=== PATIENT | male | born 1945 | race Caucasian/White ===

== ENCOUNTER → 2020-01-17 | Outpatient (CLI) | payer MEDICARE ==
--- NOTE | 2020-01-17 17:24 | Diagnostic Imaging Report ---
INDICATION: Left flank pain x5 days AP abdominal views are obtained. No overt obstruction is seen. There is prominent stool throughout the colon. There are surgical sutures in the right side of the abdomen. No overt calculi are visualized over the left kidney. There is a small calcification overlying the right side of the abdomen. The pelvis shows some previous surgical sutures. IMPRESSION: Unremarkable bowel gas pattern. Postop changes. Small calcification overlying the right side of the abdomen may be in the right kidney. Dictated by: Dictated on workstation # [id number]
--- NOTE | 2020-01-17 17:27 | Diagnostic Imaging Report ---
EXAMINATION: CT Abdomen Pelvis without contrast. TECHNIQUE: Multiple contiguous axial images were obtained through the abdomen and pelvis without the use of intravenous contrast. All CT scans use one or more of the following dose optimizing techniques: automated exposure control, MA and/or KvP adjustment based on a patient size and exam type, or iterative reconstruction. HISTORY: FLANK PAIN COMPARISON: None available. FINDINGS: Lung bases: Bibasilar dependent atelectasis. Solid organs: The liver is normal. Multiple layering hyperdense stones within the gallbladder. There is no biliary ductal dilation. Pancreas is normal. Multiple calcified granulomas within the spleen. There is a 1.8 cm right adrenal nodule with Hounsfield units of approximately 1, compatible with an adrenal adenoma. The left adrenal gland is unremarkable. There appears to be bilateral renal sinus cysts. No hydronephrosis. Nonobstructing right renal calculus measuring 0.3 cm. No hydroureter. Bowel: Surgical changes in the small bowel without obstruction. Changes from distal colectomy with left lower quadrant end colostomy. The appendix is unremarkable. Peritoneum: There is no intraperitoneal free fluid or free air. No suspicious lymphadenopathy. Vasculature: Calcification of the aorta without aneurysm. Musculoskeletal: Degenerative changes of the spine without suspicious osseous lesion or compression fracture. There is a moderate fat-containing peristomal hernia. Pelvis: Calcifications within a normally sized prostate gland. Diffuse bladder wall thickening. There is a 0.2 cm calculus within the dependent urinary bladder near the left ureterovesicular junction (series 2 image 132). IMPRESSION: 1. A 0.2 cm calculus within the urinary bladder near the left ureterovesicular junction which could represent a recently passed stone. 2. Mild diffuse bladder wall thickening. Recommend correlation with urinalysis. 3. Additional nonobstructing right renal calculus. No hydronephrosis. Dictated by: Dictated on workstation # [id number]
[2020-01-17 18:27] LABS: HEMOGLOBIN 15.6 G/DL (13.3-17.7); WHITE BLOOD COUNT 9.2 10^3/uL (4.3-11.0)
[2020-01-17 18:28] LABS: BILIRUBIN,URINE NEGATIVE (NEGATIVE); CLARITY,URINE CLEAR; COLOR,URINE DK YELLOW; GLUCOSE, URINE (UA) NEGATIVE (NEGATIVE); KETONES,URINE TRACE (NEGATIVE); LEUKOCYTE ESTERASE ,URINE NEGATIVE (NEGATIVE); MEAN PLATELET VOLUME 9.4 FL (7.4-10.4); NITRITE,URINE NEGATIVE (NEGATIVE); PH,URINE 5.5 (5-9); PROTEIN,URINE NEGATIVE (NEGATIVE); WBC,URINE RARE /HPF
[2020-01-17 18:29] LABS: BACTERIA,URINE NEGATIVE /HPF; CALCIUM OXALATE CRYSTALS,UR MODERATE /LPF; SQUAMOUS EPITHELIAL CELL,UR RARE /HPF
[2020-01-17 18:30] LABS: BUN/CREATININE RATIO 19; CALCIUM 9.8 MG/DL (8.5-10.1); CARBON DIOXIDE 28 MMOL/L (21-32); CHLORIDE 102 MMOL/L (98-107); CREATININE SERUM 0.77 MG/DL (0.60-1.30); GFR ESTIMATED > 60; GLUCOSE 113 MG/DL (70-105); POTASSIUM 4.2 MMOL/L (3.6-5.0); SODIUM 141 MMOL/L (135-145)
== END ==
LOC: LAB FS 15:56
PROVIDERS: ATTEND Urology
DX: N21.0 Calculus in bladder (principal); N20.0 Calculus of kidney; Z90.49 Acquired absence of other specified parts of digestive tract
CPT/HCPCS: 36415; 74018; 74176; 80048; 81000; 84153; 85027

== ENCOUNTER 2020-02-03 15:41 | Emergency (ER) | payer MEDICARE ==
[~2020-02-03] VITALS: Ht 177.8 cm; Wt 82.5 kg
--- NOTE | 2020-02-03 15:53 | ED GI ---
General Chief Complaint: Abdominal/GI Problems Stated Complaint: ABD PAIN History of Present Illness Date Seen by Provider: Feb 03, 2020 Time Seen by Provider: 15:53 Initial Comments 74-year-old male presents with some abdominal cramping. He comes in mainly because he has a stoma due to prior colon resection. States that since around 1:30 this morning he has not had any stool out. He has a new bag on that is completely empty but reports that his previous by had no gas or stool. He was recently treated for a kidney stone on Bactrim and tramadol on 01 16. Patient reports a history of hep C. Patient reports the cramping is occasional and not at this time. He had one episode of vomiting this morning otherwise none since then. Patient denies any fevers or chills. No other systemic complaints Allergies and Home Medications Allergies Coded Allergies: No Known Drug Allergies (Unverified , 02/03/20) Home Medications No Active Prescriptions or Reported Meds Patient Home Medication List Home Medication List Reviewed: Yes Review of Systems Review of Systems Constitutional: No chills, No fever, No malaise Respiratory: Denies Cough, Denies Shortness of Air Cardiovascular: Denies Chest Pain, Denies Lightheadedness Gastrointestinal: See HPI Genitourinary: See HPI Musculoskeletal: no symptoms reported Skin: no symptoms reported Psychiatric/Neurological: No Symptoms Reported Endocrine: No Symptoms Reported Past [id number] Hx Past Med/Social Hx: Reviewed Nursing Past Med/Soc Hx Physical Exam Vital Signs Vital Signs - First Documented 02/03/20 15:45 Temp 37.6 Pulse 90 Resp 16 B/P (MAP) 149/85 (106) Pulse Ox 99 O2 Delivery Room Air Capillary Refill : Height/Weight/BMI Height: '" Weight: lbs. oz. 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, no motor/sensory deficits, alert, normal mood/affect, oriented x 3 Skin: normal color, warm/dry Focused Exam Lactate Level 02/03/20 16:00: Lactic Acid Level 2.14*H Lactic Acid Level Laboratory Tests Test 02/03/20 16:00 Lactic Acid Level 2.14 MMOL/L (0.50-2.00) *H Progress/Results/Core Measures Results/Orders Lab Results Laboratory Tests Test 02/03/20 15:55 02/03/20 16:00 02/03/20 16:15 Range/Units White Blood Count 15.7 H 4.3-11.0 10^3/uL Red Blood Count 5.45 4.35-5.85 10^6/uL Hemoglobin 16.5 13.3-17.7 G/DL Hematocrit 47 40-54 % Mean Corpuscular Volume 85 80-99 FL Mean Corpuscular Hemoglobin 30 25-34 PG Mean Corpuscular Hemoglobin Concent 36 32-36 G/DL Red Cell Distribution Width 14.2 10.0-14.5 % Platelet Count 213 130-400 10^3/uL Mean Platelet Volume 8.6 7.4-10.4 FL Immature Granulocyte % (Auto) 0 % Neutrophils (%) (Auto) 88 H 42-75 % Lymphocytes (%) (Auto) 6 L 12-44 % Monocytes (%) (Auto) 6 0-12 % Eosinophils (%) (Auto) 0 0-10 % Basophils (%) (Auto) 0 0-10 % Neutrophils # (Auto) 13.8 H 1.8-7.8 X 10^3 Lymphocytes # (Auto) 0.9 L 1.0-4.0 X 10^3 Monocytes # (Auto) 0.9 0.0-1.0 X 10^3 Eosinophils # (Auto) 0.0 0.0-0.3 10^3/uL Basophils # (Auto) 0.0 0.0-0.1 10^3/uL Immature Granulocyte # (Auto) 0.1 0.0-0.1 10^3/uL Neutrophils % (Manual) 82 % Lymphocytes % (Manual) 4 % Monocytes % (Manual) 7 % Eosinophils % (Manual) 0 % Basophils % (Manual) 0 % Band Neutrophils 7 % Blood Morphology Comment NORMAL Sodium Level 134 L 135-145 MMOL/L Potassium Level 4.0 3.6-5.0 MMOL/L Chloride Level 95 L 98-107 MMOL/L Carbon Dioxide Level 26 21-32 MMOL/L Anion Gap 13 5-14 MMOL/L Blood Urea Nitrogen 10 7-18 MG/DL Creatinine 0.65 0.60-1.30 MG/DL Estimat Glomerular Filtration Rate > 60 BUN/Creatinine Ratio 15 Glucose Level 131 H 70-105 MG/DL Calcium Level 10.0 8.5-10.1 MG/DL Corrected Calcium 9.6 8.5-10.1 MG/DL Total Bilirubin 0.9 0.1-1.0 MG/DL Aspartate Amino Transf (AST/SGOT) 32 5-34 U/L Alanine Aminotransferase (ALT/SGPT) 47 0-55 U/L Alkaline Phosphatase 91 40-136 U/L C-Reactive Protein 0.29 <0.50 MG/DL Total Protein 8.1 6.4-8.2 GM/DL Albumin 4.5 3.2-4.5 GM/DL Lipase 16 8-78 U/L Lactic Acid Level 2.14 *H 0.50-2.00 MMOL/L Urine Color YELLOW Urine Clarity CLEAR Urine pH 6.0 5-9 Urine Specific [place] 1.015 L 1.016-1.022 Urine Protein NEGATIVE NEGATIVE Urine Glucose (UA) NEGATIVE NEGATIVE Urine Ketones NEGATIVE NEGATIVE Urine Nitrite NEGATIVE NEGATIVE Urine Bilirubin NEGATIVE NEGATIVE Urine Urobilinogen 0.2 < = 1.0 MG/DL Urine Leukocyte Esterase NEGATIVE NEGATIVE Urine RBC (Auto) 1+ H NEGATIVE Urine RBC 5-10 H /HPF Urine WBC RARE /HPF Urine Squamous Epithelial Cells 0-2 /HPF Urine Crystals NONE /LPF Urine Bacteria NEGATIVE /HPF Urine Casts NONE /LPF Urine Mucus NEGATIVE /LPF Urine Culture Indicated NO My Orders Orders - SALAZAR,NANCY L DO Cbc With Automated Diff (02/03/20 15:53) Comprehensive Metabolic Panel (02/03/20 15:53) Lactic Acid Analyzer (02/03/20 15:53) Lipase (02/03/20 15:53) Ua Culture If Indicated (02/03/20 15:53) Crp Fs (02/03/20 15:53) Acute Abd Series (02/03/20 15:53) Manual Differential (02/03/20 15:55) Ct Abdomen/Pelvis W (02/03/20 16:36) Iohexol Injection (Omnipaque 350 Mg/Ml 1 (02/03/20 17:00) Received Contrast (Hold Metformin- Contr (02/03/20 17:00) Ns (Ivpb) (Sodium Chloride 0.9% Ivpb Bag (02/03/20 17:00) Ed Iv/Invasive Line Start (02/03/20 16:51) Ns Iv 1000 Ml (Sodium Chloride 0.9%) (02/03/20 17:00) Medications Given in ED Current Medications Medications Dose Ordered Sig/Aurea Route Start Time Stop Time Status Last Admin Dose Admin Iohexol 100 ml ONCE ONCE IV 02/03/20 17:00 02/03/20 17:01 DC 02/03/20 17:01 100 ML Sodium Chloride 100 ml ONCE ONCE IV 02/03/20 17:00 02/03/20 17:01 DC 02/03/20 17:02 80 ML Vital Signs/I&O 02/03/20 15:45 Temp 37.6 Pulse 90 Resp 16 B/P (MAP) 149/85 (106) Pulse Ox 99 O2 Delivery Room Air Progress Progress Note : Time: 17:29 Progress Note I reviewed labs and CT findings with patient. Patient was here mainly for lack of stool which appears to be due to constipation. I did discuss him the slight elevated white count with the thickened gallbladder wall on CT. This time he is not having any focal complaints of pain fever chills or other gallbladder type symptoms. Ultrasound is not available either here or [facility] today. I do discussing options of transfer to another facility. Patient feels that because he is only here for the decreased stool that seems to be due to constipation per CT and x-ray he would prefer to wait for any further evaluation. His symptoms worsens he will return here to the ER. Patient is otherwise stable. I recommend he start some MiraLAX and increase his fluids. Patient will be discharged home Diagnostic Imaging Diagonstic Imaging: Xray Plain Films/CT/US/NM/MRI: abdomen Comments [facility]. [place], [place] NAME: JASPREET NEWMAN [facility] REC#: [id number] PT STATUS: REG ER : 1945 PHYSICIAN: NANCY SALAZAR DO ADMIT DATE: 02/03/20/ER FS Signed Date of Exam:02/03/20 ACUTE ABD SERIES Indication: Abdominal pain. COMPARISON: CT abdomen and pelvis from 01/17/2020. FINDINGS: Lungs are clear. No pleural effusion or pneumothorax. Normal cardiomediastinal silhouette. No free intraperitoneal air. Nonobstructive bowel gas pattern. Left lower quadrant colostomy is present. A moderate amount of colonic stool is present and has not substantially changed since prior exam. IMPRESSION: 1. Nonobstructive bowel gas pattern. 2. No free intraperitoneal air. 3. Unchanged moderate volume of colonic stool. Dictated by: Dictated on workstation # [id number] Dict: 02/03/20 161 Trans: 02/03/201613 PJE [id number] Interpreted by: VALENTE ABRAHAM MD Electronically signed by: VALENTE ABRAHAM MD 02/03/201613 [facility] [place], [place] NAME: JASPREET NEWMAN [facility] REC#: [id number] PT STATUS: REG ER : 1945 PHYSICIAN: NANCY SALAZAR DO ADMIT DATE: 02/03/20/ER FS Signed Date of Exam:02/03/20 CT ABDOMEN/PELVIS W PROCEDURE: CT abdomen and pelvis with contrast. TECHNIQUE: Multiple contiguous axial images were obtained through the abdomen and pelvis after administration of intravenous contrast. Auto Exposure Controls were utilized during the CT exam to meet ALARA standards for radiation dose reduction. All CT scans use one or more of the following dose optimizing techniques: automated exposure control, MA and/or KvP adjustment based on patient size and exam type or iterative reconstruction. INDICATION: Mid abdominal pain. COMPARISON: Prior examination from 01/17/2020. FINDINGS: The lung bases are clear. Liver is normal in size without focal lesions. There is cholelithiasis. Gallbladder is hydropic. There is mild gallbladder wall thickening. Spleen is normal. Pancreas and adrenal glands are unremarkable. There are parapelvic peripelvic cysts in the left kidney. Right kidney is normal. The aorta is nonaneurysmal. The bowel gas pattern is relatively nonspecific. There is a moderate amount of fecal material which may reflect some degree of constipation. There is a left lower quadrant ostomy where there appears a small parastomal hernia. There is no free air. There is no ascites. There are no focal inflammatory changes. There are postsurgical changes in the pelvis with some sacral thickening in the region of the surgical clips. The previously seen stone near the left UVJ is no longer visualized. There is a 4 mm nonobstructing stone in the right kidney. There are degenerative changes in the spine. IMPRESSION: 1. Nonobstructing right renal calculi. 2. Cholelithiasis with a somewhat hydropic gallbladder. Questionable gallbladder wall thickening. There is clinical concern for acute cholecystitis. Further evaluation with right upper quadrant ultrasound should be considered. 3. Moderate amount of retained fecal material likely reflecting some degree of constipation. 4. Parapelvic cyst in the left kidney. 5. Postsurgical changes in the pelvis, as described. Dictated by: Dictated on workstation # [id number] Dict: 02/03/20 1707 Trans: 02/03/20 1716 PJE [id number] Interpreted by: KLARISSA JOSEPH MD Electronically signed by: KLARISSA JOSEPH MD 02/03/20 17 Reviewed: Reviewed by Me, Reviewed/Discussed Departure Impression Primary Impression: Constipation Qualified Codes: K59.00 - Constipation, unspecified Additional Impression: Abnormal findings on diagnostic imaging of gallbladder Disposition: HOME, SELF-CARE Condition: Stable Departure-Patient Inst. Referrals: LEATHA RIVERA MD (PCP/Family) Primary Care Physician Patient Instructions: Constipation, Adult ED Add. Discharge Instructions: Follow-up with your primary care provider on Wednesday to arrange an outpatient ultrasound study, return to the ER if symptoms worsen or with right upper quadrant pain, nausea vomiting diarrhea fevers or chills. For your constipation I recommended you start taking MiraLAX 1 capful 2-3 times a day along with drinking plenty of fluids until you have soft daily stool. All discharge instructions reviewed with patient and/or family. Voiced understanding. Scripts No Active Prescriptions or Reported Meds NANCY SALAZAR DO Feb 03, 2020 15:53
[2020-02-03 16:09] LABS: BASOPHILS % (AUTO) 0 % (0-10); EOSINOPHILS % (AUTO) 0 % (0-10); HEMATOCRIT 47 % (40-54); HEMOGLOBIN 16.5 G/DL (13.3-17.7); LYMPHOCYTES # (AUTO) 0.9 X 10^3 (1.0-4.0); LYMPHOCYTES % (AUTO) 6 % (12-44); MEAN CORPUSCULAR HEMOGLOBIN 30 PG (25-34); MEAN CORPUSCULAR HGB CONC 36 G/DL (32-36); MEAN CORPUSCULAR VOLUME 85 FL (80-99); MEAN PLATELET VOLUME 8.6 FL (7.4-10.4); MONOCYTES % (AUTO) 6 % (0-12); NEUTROPHILS # (AUTO) 13.8 X 10^3 (1.8-7.8); NEUTROPHILS % (AUTO) 88 % (42-75); PLATELET COUNT 213 10^3/uL (130-400); WHITE BLOOD COUNT 15.7 10^3/uL (4.3-11.0)
[2020-02-03 16:10] LABS: MONOCYTES # (AUTO) 0.9 X 10^3 (0.0-1.0)
--- NOTE | 2020-02-03 16:16 | Diagnostic Imaging Report ---
Indication: Abdominal pain. COMPARISON: CT abdomen and pelvis from 01/17/2020. FINDINGS: Lungs are clear. No pleural effusion or pneumothorax. Normal cardiomediastinal silhouette. No free intraperitoneal air. Nonobstructive bowel gas pattern. Left lower quadrant colostomy is present. A moderate amount of colonic stool is present and has not substantially changed since prior exam. IMPRESSION: 1. Nonobstructive bowel gas pattern. 2. No free intraperitoneal air. 3. Unchanged moderate volume of colonic stool. Dictated by: Dictated on workstation # [id number]
[2020-02-03 16:21] LABS: BAND NEUTROPHILS 7 %; BASOPHILS % (MANUAL) 0 %; EOSINOPHILS % (MANUAL) 0 %; LYMPHOCYTES % (MANUAL) 4 %; MONOCYTES % (MANUAL) 7 %; NEUTROPHILS % (MANUAL) 82 %
[2020-02-03 16:22] LABS: RBC MORPH NORMAL
[2020-02-03 16:26] LABS: BILIRUBIN,TOTAL 0.9 MG/DL (0.1-1.0); BUN/CREATININE RATIO 15; CARBON DIOXIDE 26 MMOL/L (21-32); CHLORIDE 95 MMOL/L (98-107); CREATININE SERUM 0.65 MG/DL (0.60-1.30); GFR ESTIMATED > 60; GLUCOSE 131 MG/DL (70-105); SODIUM 134 MMOL/L (135-145)
[2020-02-03 16:27] LABS: ALANINE AMINOTRANSFERASE 47 U/L (0-55); ALBUMIN 4.5 GM/DL (3.2-4.5); ALKALINE PHOSPHATASE 91 U/L (40-136); LIPASE 16 U/L (8-78); TOTAL PROTEIN 8.1 GM/DL (6.4-8.2)
[2020-02-03 16:40] LABS: CLARITY,URINE CLEAR; COLOR,URINE YELLOW
[2020-02-03 16:41] LABS: BILIRUBIN,URINE NEGATIVE (NEGATIVE); GLUCOSE, URINE (UA) NEGATIVE (NEGATIVE); KETONES,URINE NEGATIVE (NEGATIVE); LEUKOCYTE ESTERASE ,URINE NEGATIVE (NEGATIVE); NITRITE,URINE NEGATIVE (NEGATIVE); PROTEIN,URINE NEGATIVE (NEGATIVE)
[2020-02-03 16:44] LABS: BACTERIA,URINE NEGATIVE /HPF; WBC,URINE RARE /HPF
[2020-02-03 16:45] LABS: SQUAMOUS EPITHELIAL CELL,UR 0-2 /HPF
[2020-02-03] MEDS ORDERED: HOLD METFORMIN - RECEIVED CONTRAST 20 ML VIAL IV SCH (17:00)
[2020-02-03] MEDS ORDERED: NS 100 ML (IVPB) BAG IV ONE (17:00)
[2020-02-03] MEDS ORDERED: NS IV 1000 ML 1,000 ML IV SCH (17:00)
[2020-02-03] MEDS ORDERED: IOHEXOL 350 MG/ML 100 ML (OMNIPAQUE 350) VIAL IV ONE (17:00)
--- NOTE | 2020-02-03 17:17 | Diagnostic Imaging Report ---
PROCEDURE: CT abdomen and pelvis with contrast. TECHNIQUE: Multiple contiguous axial images were obtained through the abdomen and pelvis after administration of intravenous contrast. Auto Exposure Controls were utilized during the CT exam to meet ALARA standards for radiation dose reduction. All CT scans use one or more of the following dose optimizing techniques: automated exposure control, MA and/or KvP adjustment based on patient size and exam type or iterative reconstruction. INDICATION: Mid abdominal pain. COMPARISON: Prior examination from 01/17/2020. FINDINGS: The lung bases are clear. Liver is normal in size without focal lesions. There is cholelithiasis. Gallbladder is hydropic. There is mild gallbladder wall thickening. Spleen is normal. Pancreas and adrenal glands are unremarkable. There are parapelvic peripelvic cysts in the left kidney. Right kidney is normal. The aorta is nonaneurysmal. The bowel gas pattern is relatively nonspecific. There is a moderate amount of fecal material which may reflect some degree of constipation. There is a left lower quadrant ostomy where there appears a small parastomal hernia. There is no free air. There is no ascites. There are no focal inflammatory changes. There are postsurgical changes in the pelvis with some sacral thickening in the region of the surgical clips. The previously seen stone near the left UVJ is no longer visualized. There is a 4 mm nonobstructing stone in the right kidney. There are degenerative changes in the spine. IMPRESSION: 1. Nonobstructing right renal calculi. 2. Cholelithiasis with a somewhat hydropic gallbladder. Questionable gallbladder wall thickening. There is clinical concern for acute cholecystitis. Further evaluation with right upper quadrant ultrasound should be considered. 3. Moderate amount of retained fecal material likely reflecting some degree of constipation. 4. Parapelvic cyst in the left kidney. 5. Postsurgical changes in the pelvis, as described. Dictated by: Dictated on workstation # [id number]
--- NOTE | 2020-02-03 17:25 | NUR ---
Dr Reveles in to see patient and reporting CT findings. Pt was willing to go home as he prefers and return if worsening sx and can plan f/u with PCP to look at GB with sono in a future date. Pt offered to get to somewhere with ultrasound but [facility] have no ultrasound senior environmental scientist.
[2020-02-03 17:40] VITALS: BP 142/67
== END 2020-02-03 17:40 | disposition home or self-care (01) ==
LOC: EDUNIT# 15:41 → ER FS 15:43
DX: K59.00 Constipation, unspecified (principal); R93.2 Abnormal findings on diagnostic imaging of liver and biliary tract
CPT/HCPCS: 36415; 74022; 74177; 80053; 81000; 83605; 83690; 85007; 85027; 86141

== ENCOUNTER 2020-02-15 05:49 | Outpatient (RCR) | payer MEDICARE ==
[~2020-02-15] VITALS: Ht 177.8 cm; Wt 82.3 kg
== END 2020-02-15 13:07 | disposition home or self-care (01) ==
LOC: PREOP 05:49
PROVIDERS: ATTEND Surgery
DX: Z01.812 Encounter for preprocedural laboratory examination (principal); K80.80 Other cholelithiasis without obstruction

== ENCOUNTER → 2020-03-05 | Outpatient (CLI) | payer MEDICARE ==
[~2020-03-05] MED LIST: ACHD5005 PO; DOCU-143 PO
== END ==
LOC: LAB FS 10:00
PROVIDERS: ATTEND Surgery
DX: K80.80 Other cholelithiasis without obstruction (principal); Z20.822 Contact with and (suspected) exposure to COVID-19
CPT/HCPCS: 87635

== ENCOUNTER 2020-03-07 06:06 | Day surgery (SDC) | payer MEDICARE ==
[~2020-03-07] VITALS: Ht 177 cm; Wt 82.3 kg
[2020-03-07] VITALS (10 sets, daily range): BP systolic 106–155; BP diastolic 61–90
[2020-03-07] MEDS ORDERED: ceFAZolin 2 GM IV Premixed 50 ML IV ONE (06:15)
[2020-03-07] MEDS ORDERED: LIDOCAINE PF 2% 5 ML (XYLOCAINE) VIAL ONE (06:43)
[2020-03-07] MEDS ORDERED: fentaNYL INJECTION 100 MCG/2 ML AMP ONE (06:43)
[2020-03-07] MEDS ORDERED: PROPOFOL INJECTION 50 ML IV ONE (06:43)
[2020-03-07] MEDS ORDERED: SEVOFLURANE (ULTANE) 15 ML INHAL SOLN ONE ×8 (06:46→10:17)
[2020-03-07] MEDS ORDERED: ONDANSETRON 4 MG/2 ML (SDV) Z0FRAN ONE (06:46)
[2020-03-07] MEDS: LACTATED RINGERS 1,000 ML IV PRN ×2 (06:51→11:04)
[2020-03-07] MEDS ORDERED: IOPAMIDOL 61% 30 ML (ISOVUE 300) VIAL ONE (07:14)
[2020-03-07] MEDS ORDERED: LIDOCAINE/EPI 1%-1:100,000 (XYLOCAINE) 50 ML ONE (07:14)
--- NOTE | 2020-03-07 08:03 | Progress Note-Pre Operative ---
Pre-Operative Progress Note H&P Reviewed The H&P was reviewed, patient examined and no changes noted. Date Seen by Provider: Mar 07, 2020 Time Seen by Provider: 08:03 Date H&P Reviewed: Mar 07, 2020 Time H&P Reviewed: 08:03 Pre-Operative Diagnosis: epigastric abdominal pain, symptomatic cholelithiasis TA RIVERS DO Mar 07, 2020 08:03
[2020-03-07] MEDS ORDERED: HYDROmorphone 2 MG/ML VIAL (DILAUDID) ONE (08:41)
[2020-03-07] MEDS ORDERED: LABETALOL HCL 20 MG/4 ML VIAL ONE (09:08)
[2020-03-07] MEDS ORDERED: NEOSTIGMINE 3 MG/3 ML VIAL ONE (09:10)
[2020-03-07] MEDS ORDERED: GLYCOPYRROLATE 0.2 MG/ML (ROBINUL) 2 ML VIAL ONE (09:10)
--- NOTE | 2020-03-07 09:53 | Diagnostic Imaging Report ---
INDICATION: Gallbladder disease. FINDINGS: Intraoperative fluoroscopy was performed during laparoscopic cholecystectomy. No biliary ductal dilatation. There are no intrinsic or extrinsic filling defects about the common bile duct. Minimal contrast is seen within the duodenum. 24 seconds of fluoroscopy was utilized. IMPRESSION: Intraoperative cholangiogram, status post cholecystectomy, as described. Please correlate with formal operative report. Dictated by: Dictated on workstation # [id number]
--- NOTE | 2020-03-07 10:13 | Progress Note-Post Operative ---
Post-Operative Progess Note Surgeon (s)/Able Seaman (s) Surgeon TA RIVERS DO Able Seaman: Dr. Maravilla to assist in retraction dissection and closure. Pre-Operative Diagnosis epigastric abdominal pain, symptomatic cholelithiasis Post-Operative Diagnosis acute and chronic cholecystitis, cholelithiasis Procedure & Operative Findings Date of Procedure 03/07/20 Procedure Performed/Findings Lap madison c ioc, EGD Anesthesia Type general Estimated Blood Loss Estimated blood loss (mL): 150 mL Specimens/Packing Specimens Removed gallbladder TA RIVERS DO Mar 07, 2020 10:13
[2020-03-07] MEDS ORDERED: ACHD5005 PO (10:15)
[2020-03-07] MEDS ORDERED: DOCU-143 PO (10:15)
--- NOTE | 2020-03-07 10:17 | Discharge Inst-Simple/Standard ---
Discharge Inst-Standard Discharge Medications New, Converted or Re-Newed RX: RX on Chart Patient Instructions/Follow Up Plan of Care/Instructions/FU: 2-3 weeks Kim Activity as Tolerated: No Discharge Diet: Regular Diet Other Inst to Patient Follow up Appt: Make appointment for 2 weeks. Instructions: No lifting greater than 10 pounds. No strenuous activity. May shower in 24 hours, no tub bath or soaking. Use incentive spirometer at home as directed. No Smoking Skin/Wound Care: You have special glue over incision, it will fall off on it's own. Symptoms to Report: Appetite Changes, Extremity Discoloration, Numbness/Tingling, Swelling Increased, Bleeding Excessive, Eyesight Changes, Pain Increased, Urine Color Change, Constipation(Persistent), Fever over 101 degree F, Pain/Pressure in ch est, Urinating Difficulty, Cough Up/Vomit Blood, Heart Beat Irreg/Pounding, Pain/Pressure in jaw, Vaginal Bleeding Increase, Cramps in feet or legs, Lightheadedness, Pain/Pressure in shoulder, Diarrhea(Persistent), Memory Changes Suddenly, Questions/Concerns, Weight gain consecutive days, Dizziness/Fainting, Nausea/Vomiting, Shortness of Breath, Weight gain over 2 pounds. If eyes or skin turn yellow notify physician. If questions or concerns contact your physician Or seek help at emergency department. TA RIVERS DO Mar 07, 2020 10:17
[2020-03-07] MEDS ORDERED: HYDROmorphone 2 MG/ML VIAL (DILAUDID) IV ONE (10:45)
[2020-03-07] MEDS ORDERED: morphine INJ 10 MG/ML 1ML (SYR OR VIAL) IVP ONE (10:45)
[2020-03-07] MEDS: ONDANSETRON 4 MG/2 ML (SDV) Z0FRAN IVP PRN ×2 (10:51→11:05)
[2020-03-07] MEDS ORDERED: PROMETHAZINE INJ 25 MG/ML (PHENERGAN) AMP ONE (11:27)
[2020-03-07] MEDS ORDERED: PROMETHAZINE INJ 25 MG/ML (PHENERGAN) AMP IVP ONE (11:30)
--- NOTE | 2020-03-07 13:04 | Anesthesia-General Post-Op ---
General Patient Condition Mental Status/LOC: Same as Preop Cardiovascular: Satisfactory Nausea/Vomiting: Absent Respiratory: Satisfactory Pain: Controlled Complications: Absent Post Op Complications Complications None Follow Up Care/Instructions Patient Instructions None needed. Anesthesia/Patient Condition Patient Condition Patient is doing well, no complaints, stable vital signs, no apparent adverse anesthesia problems. He is currently being discharged to home. He did have quite a bit of "gas" after PACU, most likely due to the EGD. He was given phenergan IV and did much better after that. ANALY DUFFY DO Mar 07, 2020 13:04
--- NOTE | 2020-03-08 23:49 | OPERATIVE REPORT ---
DATE OF SERVICE: 03/07/2020 PREOPERATIVE DIAGNOSES: Epigastric abdominal pain, symptomatic cholelithiasis. POSTOPERATIVE DIAGNOSES: Acute and chronic cholecystitis, cholelithiasis. PROCEDURE: Laparoscopic cholecystectomy with intraoperative cholangiogram, esophagogastroduodenoscopy. SURGEON: Ta Alvarez DO HEATING AND AIR CONDITIONING MECHANIC: Dr. Maravilla, assisted in retraction, dissection and closure. ANESTHESIA: General. ESTIMATED BLOOD LOSS: 150 mL. COMPLICATIONS: None. PACKING: Surgicel. INDICATIONS: The patient is a 74-year-old male with epigastric abdominal pain and found to have cholelithiasis by ultrasound. He understands risks and benefits of procedure, he wishes to proceed with procedure. Consent was signed in the chart. DESCRIPTION OF PROCEDURE: The patient was taken to the operating suite, was prepped and draped in sterile fashion. Timeout was performed. The patient with colostomy in left lower quadrant. The incision was made in the left upper quadrant. Local anesthetic was infiltrated and an 11 blade scalpel was used to make a small skin incision. Dissection was taken down to the subcutaneous tissue was divided the anterior fascia, divided the muscle go through the posterior fascia. The abdomen was then entered. A balloon trocar was inserted and pneumoperitoneum was achieved. Scope was inserted and under direct visualization of the laparoscope, a 5 mm trocar was placed in the right upper quadrant. A second 5 mm trocar was placed in the right upper quadrant and a third 5 mm trocar was placed just above the umbilicus. The omentum and multiple adhesions were present, which the adhesions to the abdominal wall continued to be bluntly taken down. There were significant adhesions of omentum up to the liver edge, which were continued to be both blunt and cautery, dissected, freeing it, the gallbladder was then able to be visualized, grasped and began to be elevated and then continued to take down adhesions. There is one area where there appeared to be small necrotic area. This was also next to the duodenum, which was continued to be inspected, but a question if any type of perforation was present at this point. The gallbladder was then continued to be elevated and the adhesions taken down until the cystic duct was able to be dissected free. A clip was placed on the distal portion of the duct was then partially transected and Arrow catheter was inserted and cholangiogram was performed. No filling defects visualized and contrast did not make its way into the duodenum. The catheter was then removed. Clips were placed on the proximal portion and the duct was then transected. Hook cautery was then used to continue to mobilize the gallbladder until the artery was dissected free. Clips were placed on the proximal and distal portion of the cystic artery and this was then transected and hook cautery used to continue to dissect the gallbladder from the gallbladder fossa. The posterior portion was slightly necrotic and some purulent drainage came from the gallbladder. This was suctioned and then irrigated with copious amounts of irrigation. A small portion of the posterior wall was left on the liver bed. Cautery was used to achieve hemostasis and the gallbladder was placed in the Endobag and removed through the 12 mm trocar site. Copious amounts of irrigation was used and irrigated and hemostasis was achieved. A piece of Surgicel was placed down in the gallbladder fossa. Due to question if there was any type of duodenal perforation into the area visualized, EGD was performed. The scope was inserted in the mouth, down the esophagus, stomach and into the duodenum without difficulty. The duodenum was inspected. Dr. Maravilla placed on external pressure on the area of concern, which was ballottable area was able to be visualized within the duodenum. There was no evidence of any perforation or ulceration at this area. Scope was then slowly retracted. No evidence of any ulcerations throughout in the duodenum that was able to be visualized as well. Scope was then continuously retracted back into the stomach, which had no abnormality visualized. Scope was then slowly retracted back into the distal esophagus and slowly retracted until completely removed. The abdomen was then desufflated, the trocars were removed. The 12 mm trocar site was closed with 0 Vicryl and skin was then closed using 4-0 Monocryl in subcuticular fashion. The areas were then washed and dried and Skin Affix was placed over the incisions. The patient tolerated procedure well without any complications. He was taken to recovery room in stable condition. Job ID: [id number] DocumentID: [id number] Dictated Date: 03/08/2020 16:28:24 Service Planner Date: 03/08/2020 23:48:00 Dictated By: TA ALVAREZ DO
== END 2020-03-07 13:00 | disposition home or self-care (01) ==
LOC: SDC 06:06
PROVIDERS: ATTEND Surgery
DX: K80.12 Calculus of gallbladder with acute and chronic cholecystitis without obstruction (principal); Z87.891 Personal history of nicotine dependence; Z80.9 Family history of malignant neoplasm, unspecified
CPT/HCPCS: 76000; 87081; 88304

== ENCOUNTER 2020-04-24 09:11 | Emergency (ER) | payer MEDICARE ==
[~2020-04-24] VITALS: Ht 177 cm; Wt 77.0 kg
--- NOTE | 2020-04-24 09:21 | ED General ---
General Stated Complaint: RIGHT SIDE PAIN History of Present Illness Date Seen by Provider: Apr 24, 2020 Time Seen by Provider: 09:21 Initial Comments 74-year-old male presents with some mild lower right-sided pain. Reports has been going on for a day or 2 is gone in just a discomfort. Patient reports for a couple days he is also felt like he just has to urinate all the time. He has had some mild nausea. Patient reports that the end of February had his gallbladder out was not sure if it was related to that. He does have a history of kidney stones. He has not vomited. No fevers or chills. Allergies and Home Medications Allergies Coded Allergies: No Known Drug Allergies (Unverified , 02/03/20) Home Medications Docusate Sodium 100 Mg Capsule, 100 MG PO BID Prescribed by: TA RIVERS on 03/07/20 1015 Hydrocodone/Acetaminophen 1 Each Tablet, 1 EACH PO Q4H Prescribed by: TA RIVERS on 03/07/20 1015 Patient Home Medication List Home Medication List Reviewed: Yes Review of Systems Review of Systems Constitutional: No chills, No fever Respiratory: No cough, No short of breath Cardiovascular: No chest pain, No palpitations Gastrointestinal: abdominal pain (RLQ), nausea; No vomiting Genitourinary: see HPI, frequency Musculoskeletal: see HPI Skin: no symptoms reported Psychiatric/Neurological: No Symptoms Reported Hematologic/Lymphatic: No Symptoms Reported Past Mpenimp-Zpfacv-Jznbhy Hx Past Med/Social Hx: Reviewed Nursing Past Med/Soc Hx Patient Social History Type Used: Cigarettes Former Smoker, Quit: Feb 15, 1979 Recent Hopitalizations: No Immunizations Up To Date Date of Influenza Vaccine: Oct 04, 2019 Seasonal Allergies Seasonal Allergies: No Past Medical History Surgeries: Yes (Colon resection with colostomy, colonoscopy, hernia sx) Bowel Surgery Respiratory: No Currently Using CPAP: No Currently Using BIPAP: No Cardiac: No Neurological: No Genitourinary: No Gastrointestinal: Yes (colostomy) Gall Bladder Disease Musculoskeletal: No Endocrine: No HEENT: No Cancer: Yes Colon What Type of Treatment Did You: Chemotherapy, Radiation, Surgical Intervention Psychosocial: No Integumentary: No Blood Disorders: No Physical Exam Vital Signs Vital Signs - First Documented 04/24/20 09:15 Temp 36.9 Pulse 82 Resp 18 B/P (MAP) 159/88 (111) Pulse Ox 98 O2 Delivery Room Air Capillary Refill : Height, Weight, BMI Height: '" Weight: lbs. oz. kg; 26.26 BMI Method: General Appearance: No Apparent Distress, WD/WN Neck: Full Range of Motion, Normal Inspection Respiratory: Lungs Clear, Normal Breath Sounds Cardiovascular: Regular Rate, Rhythm, No Edema Gastrointestinal: Soft, Tenderness (Mild tenderness right lower quadrant) Back: No CVA Tenderness, No Vertebral Tenderness Extremity: Normal Capillary Refill, Normal Range of Motion Neurologic/Psychiatric: Alert, Oriented x3, Normal Mood/Affect, installation supervisor II-XII Norm as Tested Progress/Results/Core Measures Suspected Sepsis SIRS Temperature: Pulse: Respiratory Rate: Laboratory Tests 04/24/20 09:26: White Blood Count 5.2 Blood Pressure / Mean: Laboratory Tests 04/24/20 09:26: Creatinine 0.86, Platelet Count 154, Total Bilirubin 0.4 Results/Orders Lab Results Laboratory Tests Test 04/24/20 09:15 04/24/20 09:26 Range/Units Urine Color YELLOW Urine Clarity CLEAR Urine pH 6.0 5-9 Urine Specific [place] 1.020 1.016-1.022 Urine Protein NEGATIVE NEGATIVE Urine Glucose (UA) NEGATIVE NEGATIVE Urine Ketones NEGATIVE NEGATIVE Urine Nitrite NEGATIVE NEGATIVE Urine Bilirubin NEGATIVE NEGATIVE Urine Urobilinogen 0.2 < = 1.0 MG/DL Urine Leukocyte Esterase NEGATIVE NEGATIVE Urine RBC (Auto) 1+ H NEGATIVE Urine RBC 5-10 H /HPF Urine WBC RARE /HPF Urine Squamous Epithelial Cells 0-2 /HPF Urine Crystals NONE /LPF Urine Bacteria NEGATIVE /HPF Urine Casts NONE /LPF Urine Mucus NEGATIVE /LPF Urine Culture Indicated NO White Blood Count 5.2 4.3-11.0 10^3/uL Red Blood Count 4.98 4.35-5.85 10^6/uL Hemoglobin 14.3 13.3-17.7 G/DL Hematocrit 43 40-54 % Mean Corpuscular Volume 86 80-99 FL Mean Corpuscular Hemoglobin 29 25-34 PG Mean Corpuscular Hemoglobin Concent 33 32-36 G/DL Red Cell Distribution Width 15.5 H 10.0-14.5 % Platelet Count 154 130-400 10^3/uL Mean Platelet Volume 8.7 7.4-10.4 FL Immature Granulocyte % (Auto) 0 % Neutrophils (%) (Auto) 73 42-75 % Lymphocytes (%) (Auto) 19 12-44 % Monocytes (%) (Auto) 6 0-12 % Eosinophils (%) (Auto) 2 0-10 % Basophils (%) (Auto) 0 0-10 % Neutrophils # (Auto) 3.7 1.8-7.8 X 10^3 Lymphocytes # (Auto) 1.0 1.0-4.0 X 10^3 Monocytes # (Auto) 0.3 0.0-1.0 X 10^3 Eosinophils # (Auto) 0.1 0.0-0.3 10^3/uL Basophils # (Auto) 0.0 0.0-0.1 10^3/uL Immature Granulocyte # (Auto) 0.0 0.0-0.1 10^3/uL Sodium Level 140 135-145 MMOL/L Potassium Level 4.3 3.6-5.0 MMOL/L Chloride Level 105 98-107 MMOL/L Carbon Dioxide Level 27 21-32 MMOL/L Anion Gap 8 5-14 MMOL/L Blood Urea Nitrogen 18 7-18 MG/DL Creatinine 0.86 0.60-1.30 MG/DL Estimat Glomerular Filtration Rate > 60 BUN/Creatinine Ratio 21 Glucose Level 130 H 70-105 MG/DL Calcium Level 9.6 8.5-10.1 MG/DL Corrected Calcium 9.6 8.5-10.1 MG/DL Total Bilirubin 0.4 0.1-1.0 MG/DL Aspartate Amino Transf (AST/SGOT) 39 H 5-34 U/L Alanine Aminotransferase (ALT/SGPT) 45 0-55 U/L Alkaline Phosphatase 94 40-136 U/L Total Protein 7.0 6.4-8.2 GM/DL Albumin 4.0 3.2-4.5 GM/DL My Orders Orders - SALAZAR,NANCY L DO Abdomen (Kub) 1 View (04/24/20 09:24) Cbc With Automated Diff (04/24/20:24) Comprehensive Metabolic Panel (04/24/20:24) Ua Culture If Indicated (04/24/20:24) Ct Abd/Pelvis Wo(Kidney Stone) (04/24/20 09:24) Zofran Sl (04/24/20 10:27) Vital Signs/I&O 04/24/20 09:15 Temp 36.9 Pulse 82 Resp 18 B/P (MAP) 159/88 (111) Pulse Ox 98 O2 Delivery Room Air Capillary Refill : Progress Note : Progress Note Patient with some mild stool on x-ray, patient CT shows some mild bladder wall thickening and mild hydro ureter which shows potential recent stone passage. I did discuss findings with patient. I recommend he follow-up with Dr. Martin who he has seen in the past for further evaluation. Patient stable discharge Diagnostic Imaging Diagonstic Imaging: CT Plain Films/CT/US/NM/MRI: abdomen Comments [facility] [place], [place] NAME: JASPREET NEWMAN [facility] REC#: [id number] PT STATUS: REG ER : 1945 PHYSICIAN: NANCY SALAZAR DO ADMIT DATE: 04/24/20/ER FS Draft Date of Exam:04/24/20 CT ABD/PELVIS WO(KIDNEY STONE) PROCEDURE: CT urinary tract, rule out kidney stone. TECHNIQUE: Multiple contiguous axial images were obtained through the abdomen and pelvis without the use of intravenous contrast. Auto Exposure Controls were utilized during the CT exam to meet ALARA standards for radiation dose reduction. INDICATION: Kidney stones. COMPARISON: Correlation is made with the prior CT from 02/03/2020. FINDINGS: The lung bases are clear. There are calcified lymph nodes in the subcarinal location, consistent with prior granulomatous exposure. No discrete liver mass is detected. The gallbladder is surgically absent. No biliary ductal dilatation is identified. The pancreas and spleen are unremarkable. There is a low density mass involving the right adrenal gland measuring 2.2 cm. This is most suggestive of an adenoma and is similar to the prior CT. The left adrenal gland is unremarkable. The nonobstructing calculus in the lower pole of the right kidney is stable. There is some prominence of the right renal collecting system and right ureter. The dilated right ureter is traced into the pelvis to the urinary bladder but no definite ureteral calculi are seen. No bladder calculi are identified. There is generalized bladder wall thickening. There are some inflammatory changes anterior to the urinary bladder, similar to the prior exam. Prostatic calcifications are noted. There is presacral soft tissue thickening with post surgical changes to the rectum, similar to the prior exam. No discrete presacral mass is identified. The patient does have an ostomy in the left lower quadrant. The left kidney demonstrates parapelvic cysts but no intrarenal or ureteral calculi are detected. There is no hydronephrosis. The bowel loops are of normal caliber. There is no ascites or fluid collection. No pneumoperitoneum is detected. The aorta is nonaneurysmal. IMPRESSION: 1. There is mild right-sided hydroureteronephrosis; however, no definite ureteral calculi are identified. The findings may be secondary to recent passage of a calculus with residual edema at the UVJ. The patient does have generalized bladder wall thickening. While this could be owing to incomplete distention, the degree of thickening has increased since the CT from January 2020. Cystoscopy may be useful for further evaluation. 2. Post surgical changes in the pelvis with left lower quadrant ostomy. This appears stable when compared to the prior exam. 3. Nonobstructing right renal calculus. Reviewed: Reviewed by Me, Reviewed/Discussed Diagonstic Imaging: Xray Plain Films/CT/US/NM/MRI: abdomen Comments [facility]. [place], [place] NAME: JASPREET NEWMAN [facility] REC#: [id number] PT STATUS: REG ER : 1945 PHYSICIAN: NANCY SALAZAR DO ADMIT DATE: 04/24/20/ER FS Draft Date of Exam:04/24/20 ABDOMEN (KUB) 1 VIEW INDICATION: Abdominal pain with history of renal stones.. TECHNIQUE: 2 radiographs of the abdomen 9:28 AM CORRELATION STUDY: 02/03/2020 FINDINGS: Cardiac enlargement. Retained gastric contents are present. Moderate stool retention. A few gas-filled loops of small bowel within the left mid abdomen. Suture line over the low midline pelvis. There are small calcifications projecting over the right renal silhouette. Left kidney largely obscured by overlying bowel gas and stool. Probable calcified granulomas in spleen. Mild advanced degenerative change lower lumbar spine. IMPRESSION: 1. Surgical changes gastrointestinal track with moderate stool retention. No bowel obstruction. 2. A few faint calcifications projecting over the right renal silhouette. The left renal silhouette largely obscured. Reviewed: Reviewed by Me, Reviewed/Discussed Departure Impression Primary Impression: Right-sided abdominal pain of unknown etiology Additional Impression: Bladder wall thickening Disposition: HOME, SELF-CARE Condition: Stable Departure-Patient Inst. Referrals: LEATHA RIVERA MD (PCP/Family) Primary Care Physician LISA MARTIN MD Patient Instructions: Bladder Spasms (DC), Abdominal Pain, Adult ED Add. Discharge Instructions: Please call Dr. Martin's office to arrange a follow-up for an outpatient reevaluation Follow-up with your primary care provider office as needed Scripts Ondansetron (Ondansetron Odt) 4 Mg Tab.rapdis 4 MG PO Q6H PRN for NAUSEA/VOMITING, #20 TAB 0 Refills Prov: NANCY SALAZAR DO 04/24/20 Copy Copies To 1: LISA MARTIN MD, TREVOR L DO Apr 24, 2020 09:21
[2020-04-24 09:41] LABS: BASOPHILS % (AUTO) 0 % (0-10); EOSINOPHILS % (AUTO) 2 % (0-10); HEMATOCRIT 43 % (40-54); HEMOGLOBIN 14.3 G/DL (13.3-17.7); LYMPHOCYTES % (AUTO) 19 % (12-44); MEAN CORPUSCULAR HEMOGLOBIN 29 PG (25-34); MEAN CORPUSCULAR HGB CONC 33 G/DL (32-36); MEAN CORPUSCULAR VOLUME 86 FL (80-99); MEAN PLATELET VOLUME 8.7 FL (7.4-10.4); MONOCYTES % (AUTO) 6 % (0-12); PLATELET COUNT 154 10^3/uL (130-400); WHITE BLOOD COUNT 5.2 10^3/uL (4.3-11.0)
[2020-04-24 09:42] LABS: EOSINOPHILS # (AUTO) 0.1 10^3/uL (0.0-0.3); MONOCYTES # (AUTO) 0.3 X 10^3 (0.0-1.0); NEUTROPHILS # (AUTO) 3.7 X 10^3 (1.8-7.8); NEUTROPHILS % (AUTO) 73 % (42-75)
[2020-04-24 09:45] LABS: BACTERIA,URINE NEGATIVE /HPF; BILIRUBIN,URINE NEGATIVE (NEGATIVE); CLARITY,URINE CLEAR; COLOR,URINE YELLOW; GLUCOSE, URINE (UA) NEGATIVE (NEGATIVE); KETONES,URINE NEGATIVE (NEGATIVE); LEUKOCYTE ESTERASE ,URINE NEGATIVE (NEGATIVE); NITRITE,URINE NEGATIVE (NEGATIVE); PROTEIN,URINE NEGATIVE (NEGATIVE); SQUAMOUS EPITHELIAL CELL,UR 0-2 /HPF; WBC,URINE RARE /HPF
[2020-04-24 09:52] LABS: POTASSIUM 4.3 MMOL/L (3.6-5.0); SODIUM 140 MMOL/L (135-145)
[2020-04-24 09:53] LABS: ALANINE AMINOTRANSFERASE 45 U/L (0-55); ALKALINE PHOSPHATASE 94 U/L (40-136); BILIRUBIN,TOTAL 0.4 MG/DL (0.1-1.0); BUN/CREATININE RATIO 21; CALCIUM 9.6 MG/DL (8.5-10.1); CARBON DIOXIDE 27 MMOL/L (21-32); CHLORIDE 105 MMOL/L (98-107); CREATININE SERUM 0.86 MG/DL (0.60-1.30); GFR ESTIMATED > 60; GLUCOSE 130 MG/DL (70-105)
--- NOTE | 2020-04-24 10:00 | Diagnostic Imaging Report ---
PROCEDURE: CT urinary tract, rule out kidney stone. TECHNIQUE: Multiple contiguous axial images were obtained through the abdomen and pelvis without the use of intravenous contrast. Auto Exposure Controls were utilized during the CT exam to meet ALARA standards for radiation dose reduction. INDICATION: Kidney stones. COMPARISON: Correlation is made with the prior CT from 02/03/2020. FINDINGS: The lung bases are clear. There are calcified lymph nodes in the subcarinal location, consistent with prior granulomatous exposure. No discrete liver mass is detected. The gallbladder is surgically absent. No biliary ductal dilatation is identified. The pancreas and spleen are unremarkable. There is a low density mass involving the right adrenal gland measuring 2.2 cm. This is most suggestive of an adenoma and is similar to the prior CT. The left adrenal gland is unremarkable. The nonobstructing calculus in the lower pole of the right kidney is stable. There is some prominence of the right renal collecting system and right ureter. The dilated right ureter is traced into the pelvis to the urinary bladder but no definite ureteral calculi are seen. No bladder calculi are identified. There is generalized bladder wall thickening. There are some inflammatory changes anterior to the urinary bladder, similar to the prior exam. Prostatic calcifications are noted. There is presacral soft tissue thickening with post surgical changes to the rectum, similar to the prior exam. No discrete presacral mass is identified. The patient does have an ostomy in the left lower quadrant. The left kidney demonstrates parapelvic cysts but no intrarenal or ureteral calculi are detected. There is no hydronephrosis. The bowel loops are of normal caliber. There is no ascites or fluid collection. No pneumoperitoneum is detected. The aorta is nonaneurysmal. IMPRESSION: 1. There is mild right-sided hydroureteronephrosis; however, no definite ureteral calculi are identified. The findings may be secondary to recent passage of a calculus with residual edema at the UVJ. The patient does have generalized bladder wall thickening. While this could be owing to incomplete distention, the degree of thickening has increased since the CT from January 2020. Cystoscopy may be useful for further evaluation. 2. Post surgical changes in the pelvis with left lower quadrant ostomy. This appears stable when compared to the prior exam. 3. Nonobstructing right renal calculus. Dictated by: Dictated on workstation # [id number]
--- NOTE | 2020-04-24 10:04 | Diagnostic Imaging Report ---
INDICATION: Abdominal pain with history of renal stones.. TECHNIQUE: 2 radiographs of the abdomen 9:28 AM CORRELATION STUDY: 02/03/2020 FINDINGS: Cardiac enlargement. Retained gastric contents are present. Moderate stool retention. A few gas-filled loops of small bowel within the left mid abdomen. Suture line over the low midline pelvis. There are small calcifications projecting over the right renal silhouette. Left kidney largely obscured by overlying bowel gas and stool. Probable calcified granulomas in spleen. Mild advanced degenerative change lower lumbar spine. IMPRESSION: 1. Surgical changes gastrointestinal track with moderate stool retention. No bowel obstruction. 2. A few faint calcifications projecting over the right renal silhouette. The left renal silhouette largely obscured. Dictated by: Dictated on workstation # [id number]
[2020-04-24] MEDS ORDERED: ONDANSETRON 4 MG/2 ML (SDV) Z0FRAN ONE (10:23)
[2020-04-24] MEDS ORDERED: ONDANSETRON 4 MG (ZOFRAN) ORAL DISSOLVE TAB SL STA (10:27)
[2020-04-24] MEDS ORDERED: ONDA4TAB11 PO (10:28)
[2020-04-24 10:34] VITALS: BP 159/88
[2020-04-24] MEDS ORDERED: ONDANSETRON 4 MG/2 ML (SDV) Z0FRAN IVP ONE (10:45)
== END 2020-04-24 10:35 | disposition home or self-care (01) ==
LOC: EDUNIT# 09:11 → ER FS 09:12
DX: R10.31 Right lower quadrant pain (principal); N32.9 Bladder disorder, unspecified; I10 Essential (primary) hypertension; Z85.038 Personal history of other malignant neoplasm of large intestine; Z82.49 Family history of ischemic heart disease and other diseases of the circulatory system
CPT/HCPCS: 36415; 74018; 74176; 80053; 81000; 85025

== ENCOUNTER → 2021-02-17 | Outpatient (CLI) | payer MEDICARE ==
[~2021-02-17] MED LIST changes: +ONDA4TAB11 PO
[2021-02-17 12:19] LABS: CALCIUM 9.2 MG/DL (8.5-10.1); CREATININE SERUM 0.67 MG/DL (0.60-1.30); POTASSIUM 4.3 MMOL/L (3.6-5.0)
== END ==
LOC: LAB FS 11:25
PROVIDERS: ATTEND Urology
DX: N40.1 Benign prostatic hyperplasia with lower urinary tract symptoms (principal)
CPT/HCPCS: 36415; 80048; 84153

== ENCOUNTER 2021-02-25 05:36 | Outpatient (CLI) | payer MEDICARE ==
[~2021-02-25] VITALS: Ht 177.8 cm; Wt 87.1 kg
== END 2021-02-25 16:20 | disposition home or self-care (01) ==
LOC: PREOP 05:36
PROVIDERS: ATTEND Surgery
DX: Z01.818 Encounter for other preprocedural examination (principal)

== ENCOUNTER 2021-03-04 09:06 | Day surgery (SDC) | payer MEDICARE ==
[~2021-03-04] VITALS: Ht 177.8 cm; Wt 87.1 kg
[2021-03-04] MEDS ORDERED: LACTATED RINGERS 1,000 ML IV STA (09:15)
--- NOTE | 2021-03-04 09:28 | Progress Note-Pre Operative ---
Pre-Operative Progress Note H&P Reviewed The H&P was reviewed, patient examined and no changes noted. Date Seen by Provider: Mar 04, 2021 Time Seen by Provider: 09:27 Date H&P Reviewed: Mar 04, 2021 Time H&P Reviewed: 09:28 Pre-Operative Diagnosis: hx colon cancer TA RIVERS DO Mar 04, 2021 09:28
[2021-03-04 09:35] VITALS: BP 135/82
[2021-03-04] MEDS ORDERED: FLEET ENEMA ADULT 1 EA BTL PR ONE (09:45)
[2021-03-04 09:46] VITALS: BP 135/82
[2021-03-04] MEDS ORDERED: FLEET ENEMA ADULT 1 EA BTL ONE ×2 (09:46→09:51)
[2021-03-04] MEDS ORDERED: PROPOFOL INJECTION 50 ML IV ONE (11:05)
[2021-03-04 11:43] VITALS: BP 72/42
--- NOTE | 2021-03-04 11:44 | Progress Note-Post Operative ---
Post-Operative Progess Note Surgeon (s)/Architecture Faculty Member (s) Surgeon TA RIVERS DO Architecture Faculty Member: na Pre-Operative Diagnosis hx colon cancer Post-Operative Diagnosis normal colon Procedure & Operative Findings Date of Procedure 03/04/21 Procedure Performed/Findings colonoscopy Anesthesia Type per electrical tech/project manager Estimated Blood Loss Estimated blood loss (mL): none Specimens/Packing Specimens Removed na TA RIVERS DO Mar 04, 2021 11:44
--- NOTE | 2021-03-04 11:45 | Discharge Inst-Simple/Standard ---
Discharge Inst-Standard Patient Instructions/Follow Up Plan of Care/Instructions/FU: Repeat colonoscopy in 5 years. Any issues before that be seen at that time. Activity as Tolerated: Yes Discharge Diet: Regular Diet TA RIVERS DO Mar 04, 2021 11:45
[2021-03-04 11:46] VITALS: BP 83/46
[2021-03-04 12:10] VITALS: BP 110/66
--- NOTE | 2021-03-04 12:58 | Anesthesia-General Post-Op ---
MAC Patient Condition Mental Status/LOC: Same as Preop Cardiovascular: Satisfactory Nausea/Vomiting: Absent Respiratory: Satisfactory Pain: Controlled Complications: Absent Post Op Complications Complications None Follow Up Care/Instructions Patient Instructions None needed. Anesthesiology Discharge Order Discharge Order Patient is doing well, no complaints, stable vital signs, no apparent adverse anesthesia problems. No complications reported per nursing. NORBERT AMADO CRNA Mar 04, 2021 12:58
--- NOTE | 2021-03-04 17:48 | OPERATIVE REPORT ---
DATE OF SERVICE: 03/04/2021 PREOPERATIVE DIAGNOSIS: History of colon cancer. POSTOPERATIVE DIAGNOSIS: Normal colon. PROCEDURE PERFORMED: Colonoscopy. SURGEON: Ta Alvarez DO. ANESTHESIA: Per CISTERN ROOM WORKING SUPERVISOR. ESTIMATED BLOOD LOSS: None. COMPLICATIONS: None. INDICATIONS FOR PROCEDURE: The patient is a 75-year-old male with history of colon cancer. He understands the risks and benefits of the procedure and wishes to proceed. Consent was signed in the chart. DESCRIPTION OF PROCEDURE: The patient was taken to the endoscopy suite and placed in the supine position. A digital rectal exam of the colostomy was performed. No palpable polyps, masses or ulcerations. Scope was inserted through the colostomy and advanced all the way to the cecum with minimal difficulty. Prep was adequate with irrigation and suction. Scope was then slowly retracted back. No polyps, masses or ulcerations within the cecum, ascending, transverse and descending colon. Digital rectal exam was performed, a very tight anus. The scope was then inserted. A small rectal stump was present. No polyps, masses or ulcerations visualized. Scope was then slowly retracted back until completely removed. The patient tolerated the procedure well without any complications and taken to the recovery room in stable condition. RECOMMENDATIONS: The patient will need a repeat colonoscopy in five years. Any issues before that be reevaluated at that time. Job ID: [id number] DocumentID: [id number] Dictated Date: 03/04/2021 11:51:17 Chief Engineering Division Date: 03/04/2021 17:47:06 Dictated By: TA ALVAREZ DO
== END 2021-03-04 12:25 | disposition home or self-care (01) ==
LOC: ENDO 09:06
PROVIDERS: ATTEND Surgery
DX: Z12.11 Encounter for screening for malignant neoplasm of colon (principal); F32.A Depression, unspecified; Z79.891 Long term (current) use of opiate analgesic; Z79.899 Other long term (current) drug therapy; Z87.891 Personal history of nicotine dependence; Z90.89 Acquired absence of other organs; Z85.038 Personal history of other malignant neoplasm of large intestine; Z80.0 Family history of malignant neoplasm of digestive organs

== ENCOUNTER → 2021-08-21 | Outpatient (CLI) | payer MEDICARE | LOC: CARDFS 12:25 | PROVIDERS: ATTEND Family Medicine | DX: I10 Essential (primary) hypertension (principal) | CPT/HCPCS: 93306 ==

== ENCOUNTER → 2022-12-16 | Outpatient (CLI) | payer MEDICARE ==
--- NOTE | 2022-12-16 14:44 | Diagnostic Imaging Report ---
INDICATION: Frequent urination. COMPARISON: 04/24/2020. FINDINGS: Single frontal radiographic view of the abdomen was obtained. Small bowel loops are nondilated. There is no large collection of free intraperitoneal air. Small extraosseous calcification is noted projecting over the inferior pole of the right kidney. No unexpected radiopaque foreign bodies are seen. Osseous structures show age-related degenerative changes. IMPRESSION: 1. Nonobstructed small bowel gas pattern. 2. Possible right renal calculus. Dictated by: Dictated on workstation # [id number]
== END ==
LOC: RAD FS 12:14
PROVIDERS: ATTEND Urology
DX: R35.0 Frequency of micturition (principal); Z87.442 Personal history of urinary calculi
CPT/HCPCS: 74018

== ENCOUNTER → 2023-01-20 | Outpatient (CLI) | payer MEDICARE ==
--- NOTE | 2023-01-20 15:43 | Diagnostic Imaging Report ---
PROCEDURE: CT urinary tract, rule out kidney stone. TECHNIQUE: Multiple contiguous axial images were obtained through the abdomen and pelvis without the use of intravenous contrast. Auto Exposure Controls were utilized during the CT exam to meet ALARA standards for radiation dose reduction. INDICATION: Nephrolithiasis. COMPARED: 04/24/2020. FINDINGS: Lung bases showed benign calcified parenchymal and damien granulomatous disease chronic. Best seen on image 180, there is a 3.8 mm stone in the distal third of the left ureter with mild upstream left-sided hydroureteronephrosis. There is a nonobstructing cortical calcification and no bowel wall thickening. Pole of the right kidney measuring 6 mm. No other radiodense urolithiasis. No urinoma or other acute fluid collection. Low attenuating right adrenal adenoma chronic and benign. Splenic granulomata chronic. Cysts in the left hepatic lobe noted. The gallbladder surgically absent. Pancreas unremarkable. The atherosclerotic aorta nonaneurysmal. There is no bowel obstruction. There is a left lower quadrant diverting ostomy with parastomal hernia nonobstructing. Postsurgical changes at the low rectum present with some presumed posttherapeutic tissue thickening in the presacral space. This is unchanged. No abscess, hematoma or other fluid collection. There is no free air. Atherosclerotic aorta nonaneurysmal. IMPRESSION: 1. Mild to moderate left hydroureteronephrosis owing to 3.8 mm distal left ureteral stone. 2. Nonobstructing right renal calcification. 3. Parastomal hernia and posttherapeutic changes of the rectum and presacral space with stable benign right adrenal adenoma and benign granulomatous disease. Dictated by: Dictated on workstation # [id number]
== END ==
LOC: RAD FS 14:31
PROVIDERS: ATTEND Nurse Practitioner Family
DX: N20.1 Calculus of ureter (principal); N13.39 Other hydronephrosis; N28.89 Other specified disorders of kidney and ureter; K43.5 Parastomal hernia without obstruction or gangrene; D35.01 Benign neoplasm of right adrenal gland; J84.10 Pulmonary fibrosis, unspecified
CPT/HCPCS: 74176

== ENCOUNTER → 2023-01-20 | Outpatient (CLI) | payer MEDICARE ==
--- NOTE | 2023-01-20 13:50 | Diagnostic Imaging Report ---
INDICATION: Flank pain COMPARISON: 12/16/2022 FINDINGS: Single supine radiographic view of the abdomen was obtained and demonstrates nondistended loops of small bowel. There is no large collection of free peritoneal air. Moderate air and stool are seen scattered throughout the colon. Punctate extraosseous calcifications noted projecting over the inferior pole of the right renal shadow and is suspicious for nephrolithiasis. No unexpected radiopaque foreign bodies are seen. Bony structures show no gross acute abnormalities. IMPRESSION: 1. Nonobstructed small bowel gas pattern. 2. Moderate colonic air and stool. Please correlate for constipation 3. Probable right renal calculus. Dictated by: Dictated on workstation # [id number]
== END ==
LOC: RAD FS 13:13
PROVIDERS: ATTEND Urology
DX: R10.9 Unspecified abdominal pain (principal)
CPT/HCPCS: 74018